=== PATIENT | female | born 1950 | race Caucasian/White ===

== ENCOUNTER 2016-12-08 08:45 | Day surgery (SDC) | payer MEDICARE ==
[~2016-12-08] VITALS: Ht 157.5 cm; Wt 66.7 kg
--- NOTE | 2016-12-08 07:51 | PCM.HPANE ---
Patient Data Surgeon Admitting Provider: Attending Provider:Al Burton MD Primary Care Physician:Shane Molina MD Other Provider:Jolynn Vazquez Anesthesia Reason for Visit Porras's Esophagus Ht/WT & BMI Body Mass Index Allergies Coded Allergies: Pike Oil (Unverified Allergy, Severe, HIVES FROM ORANGES AND ORANGE FLAVORINGS, 10/01/14) codeine (Verified Allergy, Severe, very ill vomiting, 12/07/16) gabapentin (Verified Allergy, Severe, confusion, felt terrible, 12/07/16) indomethacin (Verified Allergy, Severe, 12/07/16) azithromycin (Verified Allergy, Unknown, 12/07/16) NSAIDS (Non-Steroidal Anti-Inflamma (Verified Adverse Reaction, Severe, CHF, 06/04/16) Uncoded Allergies: AZITRHROMYCIN (Allergy, Mild, RASH, 08/04/14) SEAFOOD (Allergy, Unknown, 07/30/14) Past Anesthesia History Anesthesia History: Denies:: Abnormal Airway, Anesthesia Reactions, Difficult Intubation, Fam Anesthesia Reaction, Fam Malignant Hypertherm, Malignant Hyperthermia Diabetes History Hx Diabetes?: No MRSA MRSA: No Medications Blood Thinner: Aspirin Reported Medications Magnesium Chloride (Slow-Mag)64 Mg Lpabdw57 Mg PO 12/07/16 Furosemide (Lasix)20 Mg Ulsqtm33 Mg PO DAILY 30 Days Ref 0 12/07/16 Omeprazole 20 Mg Tablet.dr20 Mg PO DAILY PRN For Dyspepsia or Heartburn 06/04/16 Cetirizine HCl (Zyrtec)10 Mg Lhsqoog50 Mg PO HS #30 CAPSULE Ref 0 06/04/16 Aspirin 81 Mg Rstqwn14 Mg PO DAILY Ref 0 06/04/16 Pilocarpine 5 Mg Tablet5 Mg PO TID 06/04/16 Allopurinol 100 Mg Dzslwq901 Mg PO DAILY Ref 0 06/04/16 Lisinopril 20 Mg Depele80 Mg PO DAILY Ref 0 10/01/14 Hydrocodone-Acetaminophen 5-325 mg 1 Each Tablet1-2 Each PO Q4 PRN For Pain 08/04/14 Nitroglycerin SL (Nitrostat)0.4 Mg Tab.subl0.4 Mg SL Q5MIN PRN For Chest Pain # 1 BOTTLE 07/30/14 Atorvastatin (Lipitor)80 Mg Rkafop71 Mg PO HS 30 Days Ref 0 07/30/14 Furosemide (Lasix)20 Mg Tablet0.5-1 Tab PO DAILY 30 Days Ref 0 07/30/14 Duloxetine (Cymbalta)60 Mg Capsule.dr60 Mg PO DAILY Ref 0 07/30/14 Atenolol 25 Mg Xdggds41 Mg PO DAILY #30 TABLET Ref 0 07/30/14 Alprazolam 0.5 Mg Tablet1 Mg PO HS PRN For Anxiety 30 Days Ref 0 07/30/14 Discontinued Reported Medications Docusate Calcium (Stool Softener)240 Mg Aifihpg675 Mg PO 12/07/16 Magnesium Chloride (Slow-Mag)64 Mg Tablet1-2 Tab PO 3XW 07/30/14 History History of ENT Problems?: No HEENT History: Positive for:: Cataracts (R eye) Dysphagia Sinus Problem (Allergies) Denies:: Abnormal Airway Difficult Intubation Hearing Problem Denture Type: None Teeth Condition: Within Normal Limits Hx of Heart Problems?: Yes Cardiovascular History: Positive for:: Atrial Fibrillation Cardiac Surgery (Stent placement 2009) Chest Pain Edema (R/T steriods) Heart Murmur Hypertension Irregular Heartbeat Denies:: AICD Congestive Heart Failure Pacemaker Thrombophlebitis Valvular Heart Disease Hx of Respiratory Problem?: Yes Respiratory History: Positive for:: COPD Dyspnea (with acitivity) Denies:: Asthma Cough Hemoptysis Pneumonia Tuberculosis Hx Neurologic Problems?: No Neurological History: Positive for:: Headaches Denies:: CVA Dementia Hx of GI Problems?: Yes Hx of Problems?: No Genitourinary History: Positive for:: Kidney Stones Urinary Tract Infection Denies:: HX of Hemodialysis HX of Peritoneal Dialysis: No Female Hx: Positive for:: Problems with Breasts? (Masectomy on right side) Denies:: Currently Endometriosis Pelvic Inflammatory Hx Musculoskeletal Problems?: Yes Musculoskeletal History: Positive for:: Back Injury Denies:: Joint Replacement Musculoskeletal Trauma Hx of Psycho/Social Problems?: Yes Psycho Social History: Positive for:: Anxiety Hx Depression Denies:: Bipolar Disorder Suicide Attempt Hx Surgeries?: Yes (right masectomy, neck fusion) Hx Any Other Health Problems?: Yes Other History: Positive for:: Cancer (breast cancer) Hospitalization Denies:: Endocrine Disease Thyroid Disease History Blood Transfusions: Denies:: Blood Transfuse Reaction Blood Transfusions Hx Diabetes: No Hx Alcohol Use: YesHx Substance Use: No Smoking Status: Current Every Day Smoker Have You Smoked inLast 12 mo: Yes Stop/Bang Risk Assessment Category Category 1A: Patient has history of documented sleep apnea, and HAS NOT received any narcotic, sedative or anesthesia administration during this stay. Category 1B: Patient has history of documented sleep apnea, and HAS received any narcotic , sedative or anesthesia administration during this stay Category 2: Patient has SUSPECTED Obstructive Sleep Apnea, and HAS received any narcotic , sedative or anesthesia administration during this stay. Category 3: Patient has SUSPECTED Obstructive Sleep Apnea and HAS NOT received narcotic, sedative or anesthesia administration during this stay. Category 4: Outpatient in Procedural Areas with known sleep apnea or who screen positive for High Risk via the STOP/BANG questionnaire. Exam Exam General Appearance: Alert, Oriented X3, Cooperative, Moderate Distress HEENT/AIRWAY: MP 2, Neck Movement (from), Mouth Opening (wnl) Lungs: Normal Air Movement Plan Impression Patient chart reviewed, patient interviewed and anesthestic plan with risks, benefits, and alternatives discussed, and informed consent obtained. ASA Physical Status: ASA2 Mod Systemic Disease Anesthetic Plan: GA Bene/Risks/Altern/Consents: Yes HP Complete Prior to Induction: Yes Esteban Musa MD December 08, 2016 07:51
[~2016-12-08 08:45] MED LIST: ALPR0.5T8 PO; ASPI-973 PO; ATEN25TA PO; ATOR80TA PO; CETI10CA PO; DOCU240C41 PO; DULO60CA42 PO; FURO-129 PO; HYDR-4003 PO; LISI-567 PO; Lactated Ringer's 1,000 ML IV ONE; NITR0.4T SL; OMEP20TA86 PO; PILO5TAB2 PO; SLO64 PO; ZYL100 PO
[2016-12-08] MEDS ORDERED: fentaNYL-PF 50 mCg/mL 2 mL Inj ONE (08:46)
[2016-12-08] MEDS ORDERED: Propofol 10,000 mCg/mL 20 mL Inj ONE (08:46)
[2016-12-08 09:01] VITALS: BP 138/83; PULSE 77; RESP 14; O2SAT 98
[2016-12-08] MEDS ORDERED: Lactated Ringer's 1,000 ML IV SCH (09:48)
[2016-12-08] MEDS ORDERED: Ondansetron 2 mg/mL 2 mL Inj IVPUSH PRN (09:50)
[2016-12-08] MEDS ORDERED: MetoCLOpramide 5 mg/mL 2 mL Inj IVPUSH PRN (09:50)
[2016-12-08 10:25] VITALS: BP 188/89; PULSE 88; RESP 15; O2SAT 97
[2016-12-08 10:32] VITALS: BP 167/87; PULSE 79; RESP 15; O2SAT 96
[2016-12-08 10:47] VITALS: BP 167/97; PULSE 68; RESP 16; O2SAT 95
--- NOTE | 2016-12-08 10:48 | PCM.ANEP1 ---
Post Anesthesia Phase 1 PACU Phase 1 Assessment Vital Signs Vital Signs Date Time Temp Pulse Resp B/P Pulse Ox O2 Delivery O2 Flow Rate FiO2 12/08/16 10:47 68 16 167/97 95 Room Air 12/08/16 10:32 79 15 167/87 96 Room Air 12/08/16 10:25 88 15 188/89 97 Room Air 12/08/16 09:01 37.0 77 14 138/83 98 Room Air Anesthetic Administered: GA Level of Alertness: Awake, talking QUACH's with Equal Strength: Yes Pain: No Nausea or Vomiting: No Oxygen Delivery: Room Air Lungs: Normal Air Movement Complications: No Follow up Care: No Esteban Musa MD December 08, 2016 10:48
--- NOTE | 2016-12-08 11:04 | ENDO ---
[address] [address] ENDOSCOPY PROCEDURE PATIENT: EDILIA KHALIL : 1950 MR#: [id number] ADMIT: 12/08/2016 JOB ID: [id number] DATE: 12/08/2016 PRIMARY PROVIDER: Shane Molina M.D. PROCEDURE: 1. Esophagogastroduodenoscopy with biopsies. INDICATIONS: A 66-year-old female with Porras's. EQUIPMENT: GIF H 180 J. SEDATION: Monitored anesthesia as provided by Dr. Andrea Musa. COMPLICATIONS: None identified. PROCEDURE INFORMATION: After the risks and benefits were explained, written and verbal informed consent was obtained. The patient was brought into the endoscopy suite and placed into the left lateral decubitus position. Sedation was achieved using the above-stated medications with the addition of oxygen via nasal cannula. The scope was introduced into the mouth through the bite block, and advanced under direct visualization to the level of the second portion of the duodenum. The scope was slowly withdrawn to carefully examine the mucosa for any defects or lesions. Retroflexed views were accomplished in the rectum. The colon was decompressed. The scope removed from the patient who tolerated the procedure well. FINDINGS: 1. Duodenum: No significant pathology from the bulb through to the second portion. 2. Stomach: Minimal diffuse gastropathy. No outlet obstruction. No ulcers. No mass lesions. There was an approximately 1 cm lipoma like submucosal lesion in the antrum. This was extremely soft under the forceps and demonstrate classic pillow sign. Retroflexed views of the LES disclosed evidence of prior fundoplication. 3. Esophagus: The squamocolumnar junction definitely extended up into the mid esophagus. The top margin of the Porras's was at approximately 29 cm from the incisors. The GE junction was at about 35 cm from the incisors. This would be graded as a C4 M6 segment. Four quadrant biopsies were taken at 34 and 32 cm from the incisors and then a couple of biopsies were taken from the tongue that extended up into the 29 cm ranged. This one was labeled "30 cm." I did not see any nodularity. No mass lesions. No ulcerations and no evidence of any active inflammation. ENDOSCOPIC DIAGNOSES: 1. Subtle recurrent sliding hiatal hernia (not mentioned above). 2. 6 cm Porras's (C4 M6). 3. Small antral submucosal lesion suggestive of underlying lipoma. RECOMMENDATIONS: 1. Await histopathology. 2. Continue anti-reflux protocol. 3. Repeat EGD in three years if no dysplasia is confirmed.
--- NOTE | 2016-12-11 13:34 | PATH ---
SURGICAL PATHOLOGY Attending Physician:Markos Sumner CASE STATUS: Signed Out PATIENT NAME: EDILIA KHALIL PID: [id number] : 1950 DATE COLLECTED:12/08/2016 17:34 SPECIMEN: 1: Esophagus, Biopsy 2: Esophagus, Biopsy 3: Esophagus, Biopsy CLINICAL HISTORY: 1. DISTAL ESOPHAGEAL BX @ 34 2. DISTAL ESOPHAGEAL BX @ 32 3. DISTAL ESOPHAGEAL BX @ 30 FINAL DIAGNOSIS: 1. Distal Esophagus at 34 cm, Biopsy: Squamocolumnar junctional mucosa with specialized intestinal metaplasia, consistent with Porras's esophagus. There are rare glandular elements with specialized intestinal metaplasia that could underlie regions of squamous mucosa. Negative for dysplasia and malignancy. 2. Distal Esophageal Biopsy at 32 cm: Columnar mucosa with specialized intestinal metaplasia, consistent with Porras's esophagus. No well preserved squamous component identified. Negative for dysplasia and malignancy. 3. Distal Esophageal Biopsy at 30 cm: Columnar mucosa with specialized intestinal metaplasia, consistent with Porras's esophagus. No well preserved squamous component identified. Negative for dysplasia and malignancy. ICD10: K22.7 NOTE: Parts 1-3: A second pathologist reviewed these slides and concurs with the above interpretations. GROSS DESCRIPTION: The specimen is received in three formalin filled containers labeled with the patient's name. 1). The specimen is sublabeled "distal esophageal at 34" and consists of 3 tiny portions of tissue which aggregate to 0.2 x 0.2 x 0.2 CM. The specimen is entirely submitted in cassette 1A. 2). The specimen is sublabeled "distal esophageal at 32" and consists of 3 tiny portions of tissue which aggregate to 0.2 x 0.2 x 0.1 CM. The specimen is entirely submitted in cassette 2A. 3). The specimen is sublabeled "distal esophageal at 30" and consists of 2 tiny portions of tissue which aggregate to 0.2 x 0.2 x 0.2 CM. The specimen is entirely submitted in cassette 3A. 12/08/2016 [facility] ICD-9 CODES: CPT CODES: 1: 40398 2: 24796 3: 03481 Electronically Signed Out Diana Jerez MD [facility] [address] [facility], [place] [address] Technical component performed at [facility], [address], [place], [address]
== END 2016-12-08 23:59 | disposition home or self-care (01) ==
LOC: END 08:45
PROVIDERS: ATTEND Internal Medicine Gastroenterology
DX: K22.70 Barrett's esophagus without dysplasia (principal); K44.9 Diaphragmatic hernia without obstruction or gangrene; I25.110 Atherosclerotic heart disease of native coronary artery with unstable angina pectoris; E78.5 Hyperlipidemia, unspecified; I11.0 Hypertensive heart disease with heart failure; J44.9 Chronic obstructive pulmonary disease, unspecified; I25.2 Old myocardial infarction; M19.90 Unspecified osteoarthritis, unspecified site; M79.7 Fibromyalgia; F17.210 Nicotine dependence, cigarettes, uncomplicated; Z85.3 Personal history of malignant neoplasm of breast; Z90.11 Acquired absence of right breast and nipple; F32.9 Major depressive disorder, single episode, unspecified; M10.9 Gout, unspecified; I50.9 Heart failure, unspecified; Z95.5 Presence of coronary angioplasty implant and graft; Z79.82 Long term (current) use of aspirin
CPT/HCPCS: 43239; J2250; J3010; J7120